=== PATIENT | female | born 1955 | race African-American/Black ===

== ENCOUNTER 2024-05-31 17:31 | Emergency (ER) | payer OTHER, MEDICARE ==
[~2024-05-31] VITALS: Ht 154.9 cm; Wt 63.6 kg
[2024-05-31] MEDS ORDERED: ASPI-1450 PO (17:39)
[2024-05-31] MEDS ORDERED: ATOR10TA69 PO (17:39)
[2024-05-31] MEDS ORDERED: METO50 PO (17:39)
[2024-05-31 17:42] VITALS: BP 144/88; PULSE 62; RESP 18; TEMP 98.6; O2SAT 100
[2024-05-31] MEDS: TraMADol HCL 50 MG TABLET PO ONE (22:14)
[2024-06-01] MEDS ORDERED: CYCL-448 PO (00:17)
== END 2024-06-01 00:19 | disposition home or self-care (01) ==
LOC: EMS 17:31
DX: S16.1XXA Strain of muscle, fascia and tendon at neck level, initial encounter (principal); I10 Essential (primary) hypertension; E78.00 Pure hypercholesterolemia, unspecified; Z79.82 Long term (current) use of aspirin; Z79.899 Other long term (current) drug therapy; Z88.0 Allergy status to penicillin; Z88.5 Allergy status to narcotic agent; F17.210 Nicotine dependence, cigarettes, uncomplicated; V43.52XA Car driver injured in collision with other type car in traffic accident, initial encounter; Y93.89 Activity, other specified; Y92.410 Unspecified street and highway as the place of occurrence of the external cause; Y99.8 Other external cause status
CPT/HCPCS: 70450; 72125; 99284